=== PATIENT | male | born 1990 | race Caucasian/White ===

== ENCOUNTER → 2019-03-17 | Outpatient (CLI) | payer BC ==
[2019-03-17 22:01] LABS: FREE T4 (FREE THYROXINE) 1.1 NG/DL (0.70-1.48)
== END ==
LOC: LAB FS 14:19
PROVIDERS: ATTEND Nurse Practitioner Family
DX: E89.0 Postprocedural hypothyroidism (principal)
CPT/HCPCS: 36415; 84439; 84443